=== PATIENT | male | born 2000 | race Caucasian/White ===

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

== ENCOUNTER 2018-09-28 04:42 | Emergency (ER) | payer MEDICAID ==
[2018-09-28] MEDS ORDERED: IBUPROFEN 400 MG TABLET PO ONE (04:59)
--- NOTE | 2018-09-28 05:01 | Emergency Department Record ---
History of Present Illness - General Chief complaint: Cold Stated complaint: SINUS HEADACHE Time Seen by Provider: 09/28/18 04:59 Source: Patient Mode of Arrival: Ambulatory Limitations: No limitations - History of Present Illness Initial comments: 17 yo male presents to ED for evaluation of sinus pressure to the forehead and maxillary region bilaterally. Patient denies fevers, chills, or sore throat symptoms. Patient reports taking Tylenol which did not significantly improve his symptoms. Patient denies health problems at his baseline. MD complaint: Other Onset/Timin -: Days(s) Severity: Moderate Severity scale (1-10): 8 Quality: Aching Consistency: Constant Improves with: None Worsens with: None - Related Data Allergies Allergy/AdvReac Type Severity Reaction Status Date / Time No Known Drug Allergies Allergy Verified 09/28/18 04:55 Travel Screening - Travel/Exposure Within Last 30 Days Have you traveled within the last 30 days?: No - Travel/Exposure Within Last Year Have you traveled outside the [place] in the last year?: No - Additonal Travel Details Have you been exposed to anyone with a communicable illness?: No - Travel Symptoms Symptom Screening: None Review of Systems Constitutional: Denies: Chills, Fever, Malaise, Night sweats Eyes: Denies: Eye discharge, Eye pain ENT: Reports: Congestion. Denies: Ear pain, Epistaxis Respiratory: Denies: Cough, Dyspnea Cardiovascular: Denies: Chest pain, Dyspnea on exertion Endocrine: Denies: Fatigue, Heat or cold intolerance Gastrointestinal: Denies: Abdominal pain Genitourinary: Denies: Incontinence, Retention Musculoskeletal: Denies: Arthralgia, Back pain Skin: Denies: Bruising, Change in color, Other Neurological: Reports: Headache. Denies: Abnormal gait, Confusion, Seizure Psychiatric: Denies: Anxiety Hematological/Lymphatic: Denies: Anemia, Blood Clots Past Medical History - SOCIAL HISTORY Smoking Status: Never smoker Alcohol Use: None Drug Use: None - RESPIRATORY Hx Respiratory Disorders: Yes Hx Asthma: Yes - CARDIOVASCULAR Hx Cardio Disorders: No - NEURO Hx Neuro Disorders: No - GI Hx GI Disorders: Yes Hx Reflux: Yes - Hx Genitourinary Disorders: No - ENDOCRINE Hx Endocrine Disorders: No - MUSCULOSKELETAL Hx Musculoskeletal Disorders: No - PSYCH Hx Psych Problems: Yes Hx Anxiety: Yes Hx Depression: Yes Comment:: Bi-polar - HEMATOLOGY/ONCOLOGY Hx Hematology/Oncology Disorders: Yes Comment:: Vit D deficiency Family Medical History Any Significant Family History?: No Physical Exam - General General Appearance: Alert, Oriented x3, Cooperative, Mild distress Limitations: No limitations - Head Head exam: Atraumatic, Normocephalic, Normal inspection Head exam detail: negative: Abrasion, Contusion, Urbina's sign, General tenderness, Hematoma, Laceration - Eye Eye exam: Normal appearance. negative: Conjunctival injection, Periorbital swelling, Periorbital tenderness, Scleral icterus - ENT Ear exam: negative: Auricular hematoma, Auricular trauma Nasal Exam: negative: Active bleeding, Discharge, Dried blood, Foreign body Mouth exam: negative: Drooling, Laceration, Muffled voice, Tongue elevation - Neck Neck exam: Normal inspection. negative: Meningismus, Tenderness - Respiratory Respiratory exam: Normal lung sounds bilaterally. negative: Rales, Respiratory distress, Rhonchi, Stridor - Cardiovascular Cardiovascular Exam: Regular rate, Normal rhythm, Normal heart sounds - GI/Abdominal GI/Abdominal exam: Soft. negative: Rebound, Rigid, Tenderness - Rectal Rectal exam: Deferred - exam: Deferred - Extremities Extremities exam: Normal inspection. negative: Pedal edema, Tenderness - Back Back exam: Denies: CVA tenderness (R), CVA tenderness (L) - Neurological Neurological exam: Alert, Normal gait, Oriented X3 - Psychiatric Psychiatric exam: Normal affect, Normal mood - Skin Skin exam: Normal color. negative: Abrasion Type of lesion: negative: abrasion Course Vital Signs 09/28/18 04:48 Temperature 97.2 F L Pulse Rate [ 106 H Pulse Ox Probe] Respiratory 20 Rate Blood Pressure 133/83 [Left Arm] Pulse Ox 97 - Reevaluation(s) Reevaluation #1: 09/28/18 05:03 History and examination appear c/w sinus pressure symptoms, recommend Ibuprofen as directed. Patient appears stable for discharge at this time. Disposition Disposition: Discharge Clinical Impression: Sinus pressure Disposition: Home, Self-Care Condition: (2) Stable Instructions: Rhinosinusitis (ED) Additional Instructions: Return to ED if your symptoms worsen or if you have any concerns. Ibuprofen as directed. Follow-up with your family doctor in 3-5 days as directed. Forms: Patient Portal Access Time of Disposition: 05:00 Quality - Quality Measures Quality Measures: N/A - Blood Pressure Screening Does Patient Have Any of the Following: No Blood Pressure Classification: Pre-Hypertensive BP Reading Systolic Measurement: 133 Diastolic Measurement: 83 Screening for High Blood Pressure: < Pre-Hypertensive BP, F/U Documented > [G8950] Pre-Hypertensive Follow-up Interventions: Referral to alternative/primary care provider.
== END 2018-09-28 05:08 | disposition home or self-care (01) ==
LOC: ER 04:42
DX: R51 Headache (principal)

== ENCOUNTER 2018-09-28 17:30 | Emergency (ER) | payer MEDICAID ==
--- NOTE | 2018-09-28 17:58 | Emergency Department Record ---
History of Present Illness - General Chief Complaint: Headache Migraine Stated Complaint: HEADACHE HERE THIS AM 4 Time Seen by Provider: 09/28/18 17:57 Source: Patient, RN notes reviewed Mode of Arrival: Ambulatory - History of Present Illness Initial Comments: headache started yesterday at 10 pm and seen by Dr Cope today at 4 am and diagnosised with sinusitis and given motrin and his mom is alternating tylenol and motrin last tylenol 3:30 pm today and last motrin before that. No sore throat , he has a dry cough and some sinus congestion and not having rhinorrhea. PMH anxiety disorder. he normally has two headaches per month adn he takes motrin. No chilles or sweats or fevers. Patient has no neck pain he moves his neck around freely and no change of the headache MD Complaint: Headache Onset/Timin -: Hour(s) Onset Description: Sudden Location: Retro-orbital, Temporal Severity scale (1-10): 9 Quality: Pulsatile Improves With: Nothing - Related Data Allergies Allergy/AdvReac Type Severity Reaction Status Date / Time No Known Drug Allergies Allergy Verified 09/28/18 04:55 Travel Screening - Travel/Exposure Within Last 30 Days Have you traveled within the last 30 days?: No - Travel/Exposure Within Last Year Have you traveled outside the [place] in the last year?: No - Additonal Travel Details Have you been exposed to anyone with a communicable illness?: No - Travel Symptoms Symptom Screening: Vomiting Review of Systems Reviewed: No additional complaints except as noted below Constitutional: Reports: As per HPI. Denies: Chills, Fever, Malaise, Night swe ats, Weakness, Weight change Eyes: Reports: As per HPI. Denies: Eye discharge, Eye pain, Photophobia, Vision change ENT: Reports: As per HPI. Denies: Congestion, Dental pain, Ear pain, Epistaxis, Hearing loss, Throat pain Respiratory: Reports: As per HPI. Denies: Cough, Dyspnea, Hemoptysis, Stridor, Wheezes Cardiovascular: Reports: As per HPI. Denies: Arrhythmia, Chest pain, Dyspnea on exertion, Edema, Murmurs, Orthopnea, Palpitations, Paroxysmal nocturnal dyspnea, Rheumatic Fever, Syncope Endocrine: Reports: As per HPI. Denies: Fatigue, Heat or cold intolerance, Polydipsia, Polyuria Gastrointestinal: Reports: As per HPI. Denies: Abdominal pain, Constipation, Diarrhea, Hematemesis, Hematochezia, Melena, Nausea, Vomiting Genitourinary: Reports: As per HPI. Denies: Dysuria, Frequency, Hematuria, Incontinence, Retention, Testicular pain, Testicular mass, Urgency Musculoskeletal: Reports: As per HPI. Denies: Arthralgia, Back pain, Gout, Joint swelling, Myalgia, Neck pain Skin: Reports: As per HPI. Denies: Bruising, Change in color, Change in hair/nails, Lesions, Pruritus, Rash Neurological: Reports: As per HPI, Headache. Denies: Abnormal gait, Confusion, Numbness, Paresthesias, Seizure, Tingling, Tremors, Vertigo, Weakness Psychiatric: Reports: As per HPI. Denies: Anxiety, Auditory hallucinations, Depression, Homicidal thoughts, Suicidal thoughts, Visual hallucinations Hematological/Lymphatic: Reports: As per HPI. Denies: Anemia, Blood Clots, Easy bleeding, Easy bruising, Swollen glands Past Medical History - SOCIAL HISTORY Smoking Status: Never smoker Alcohol Use: None Drug Use: None - RESPIRATORY Hx Respiratory Disorders: Yes Hx Asthma: Yes - CARDIOVASCULAR Hx Cardio Disorders: No - NEURO Hx Neuro Disorders: No - GI Hx GI Disorders: Yes Hx Reflux: Yes - Hx Genitourinary Disorders: No - ENDOCRINE Hx Endocrine Disorders: No - MUSCULOSKELETAL Hx Musculoskeletal Disorders: No - PSYCH Hx Psych Problems: Yes Hx Anxiety: Yes Hx Depression: Yes Comment:: Bi-polar - HEMATOLOGY/ONCOLOGY Hx Hematology/Oncology Disorders: Yes Comment:: Vit D deficiency Family Medical History Any Significant Family History?: No Physical Exam - General General Appearance: Alert, Oriented x3, Cooperative, No acute distress - Head Head exam: Normal inspection - Eye Eye exam: Normal appearance, PERRL Pupils: Normal accommodation - ENT ENT exam: Normal exam, Mucous membranes moist, Normal external ear exam, Normal orophraynx, TM's normal bilaterally Ear exam: Normal external inspection. negative: External canal tenderness Nasal Exam: Normal inspection. negative: Discharge, Sinus tenderness Mouth exam: Normal external inspection, Tongue normal Teeth exam: Normal inspection. negative: Dental caries Throat exam: Normal inspection. negative: Tonsillar erythema, Tonsillar exudate - Neck Neck exam: Normal inspection, Full ROM. negative: Tenderness - Respiratory Respiratory exam: Normal lung sounds bilaterally. negative: Respiratory distress - Cardiovascular Cardiovascular Exam: Regular rate, Normal rhythm, Normal heart sounds - GI/Abdominal GI/Abdominal exam: Soft, Normal bowel sounds. negative: Tenderness - Rectal Rectal exam: Deferred - exam: Deferred - Extremities Extremities exam: Normal inspection, Full ROM, Normal capillary refill. negative: Tenderness - Back Back exam: Reports: Normal inspection, Full ROM. Denies: Muscle spasm, Rash noted, Tenderness - Neurological Neurological exam: Alert, Normal gait, Oriented X3, Reflexes normal - Psychiatric Psychiatric exam: Normal affect, Normal mood - Skin Skin exam: Dry, Intact, Normal color, Warm Course Vital Signs 09/28/18 17:35 Temperature 98.3 F Pulse Rate 93 H Respiratory 20 Rate Blood Pressure 133/91 Pulse Ox 98 - Reevaluation(s) Reevaluation #1: discussed case with Dr. Lutz neurosurgery at [facility] and he accepted the patient. 09/28/18 19:41 Reevaluation #2: vision 20/70 right eye and 20/800 left eye and he said he has an eye disease and why he can not see out the left eye. 09/28/18 19:50 Reevaluation #3: discussed case with Dr Cecilio Cooper and will transfer to [facility] 09/28/18 19:57 Medical Decision Making - Data Complexity MDM Data: Labs Ordered and/or Reviewed, X-Ray Ordered and/or Reviewed (CT head pitutary tumor size2.8 cm by2.3 cm by 3.5 cm) - Lab Data Result diagrams: 09/28/18 17:50 09/28/18 17:50 Disposition Clinical Impression: Brain tumor, Decreased vision in both eyes Headache Qualifiers: Headache type: unspecified Headache chronicity pattern: acute headache Intractability: not intractable Qualified Code(s): R51 - Headache Disposition: Acute Care Hospital Transfer Condition: (2) Stable Forms: Patient Portal Access Quality - Quality Measures Quality Measures: N/A - Blood Pressure Screening Does Patient Have Any of the Following: No Blood Pressure Classification: Hypertensive Reading Systolic Measurement: 133 Diastolic Measurement: 91 Screening for High Blood Pressure: < Pre-Hypertensive BP, F/U Documented > [G8950] Pre-Hypertensive Follow-up Interventions: Referral to alternative/primary care provider.
[2018-09-28 18:17] LABS: HEMATOCRIT 45.2 % (42.0-52.0); MEAN CELL VOLUME 86.9 fl (81-97); MEAN CORPUSCULAR HEMOGLOBIN 28.8 pg (27-33); MEAN CORPUSCULAR HGB CONC 33.2 g/dl (32-36); MEAN PLATELET VOLUME 11.4 fl (7.4-10.4); PLATELET COUNT 245 K/uL (130-400); RED CELL DISTRIBUTION WIDTH 14.1 % (11.5-14.5); WHITE BLOOD COUNT W/O DIFF 8.2 K/uL (4.2-12.2)
[2018-09-28 18:33] LABS: ABSOLUTE NEUTROPHIL COUNT 5.43; BLOOD UREA NITROGEN 12 mg/dL (6-20); CREATININE 0.7 mg/dL (0.7-1.2)
[2018-09-28 18:36] LABS: GLUCOSE,RANDOM 93 mg/dL (74-109)
[2018-09-28] MEDS ORDERED: LORAZEPAM 2 MG/ML VIAL IV ONE (18:48)
[2018-09-28] MEDS ORDERED: KETOROLAC 30 MG/ML VIAL IVP ONE (18:48)
[2018-09-28] MEDS ORDERED: HYDROMORPHONE HCL 2 MG/ML VIAL IVP ONE (22:52)
[2018-09-29] MEDS ORDERED: ONDANSETRON HCL IV 4 MG/2 ML VIAL IVP ONE (01:22)
--- NOTE | 2018-09-30 09:06 | RADIOLOGY REPORT ---
EXAM: CHEST, TWO VIEWS HISTORY: HEADACHE AND VOMITING. TECHNIQUE: PA and lateral upright views of the chest were obtained. Comparison: 05/12/09. FINDINGS: The heart, mediastinum, and pulmonary vasculature are normal. There are no acute infiltrates or effusions. There is no pneumothorax. IMPRESSION: NO ACUTE CHEST PATHOLOGY. JOB NUMBER: [id number] MTDD
--- NOTE | 2018-09-30 09:29 | CT SCAN REPORT ---
EXAM: CT SCAN OF THE BRAIN WITHOUT CONTRAST HISTORY: HEADACHE SINCE THIS MORNING. VOMITING. NOT FEELING WELL. TECHNIQUE: Standard CT imaging of the brain was performed in the axial plane without contrast. Comparison: 12/24/12. FINDINGS: The brain volume is normal. The ventricles and subarachnoid spaces are normal. There is a pituitary mass expanding the sella. This is new from the previous examination. This measures 2.8 cm transverse x 2.3 cm AP x 3.5 cm in height. This extends into the suprasellar cistern and displaces the optic chiasm. This is slightly low density when compared to the adjacent brain parenchyma. An MRI of the pituitary is recommended for further characterization. The remaining brain parenchyma appears normal. There is no other mass or mass effect. There is no intracranial hemorrhage or abnormal extraaxial fluid. The skull is intact. The orbits, sinuses and mastoids are normal. IMPRESSION: 1. 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 A FOLLOW-UP MRI OF THE PITUITARY IS RECOMMENDED FOR FURTHER CHARACTERIZATION. 2. NO ACUTE INTRACRANIAL ABNORMALITY. JOB NUMBER: [id number] [facility]
== END 2018-09-29 02:01 | disposition short-term general hospital (02) ==
LOC: ER 17:30
DX: G93.9 Disorder of brain, unspecified (principal); H54.7 Unspecified visual loss; R51 Headache; R11.10 Vomiting, unspecified; R05 Cough
CPT/HCPCS: 99282 ×2; 99285 ×2; 96374; 96375; 85730; 80048; 85027; 71046; 70450; J1885; J2405; J1170; J2060